=== PATIENT | female | born 1990 | race Caucasian/White ===

== ENCOUNTER 2016-09-30 00:11 | Emergency (ER) | payer OTHER, MEDICAID ==
[~2016-09-30] VITALS: Ht 157.5 cm; Wt 65.8 kg
[~2016-09-30 00:11] MED LIST: ABILIFY5 MG; BIRTH CONTROL; CORTISPORIN EAR10 M1 AS; CORTISPORIN EAR10 ML AU; NORCO 5-325 TA1 EACH PO; PRENATAL COMPL1 EACH PO; PRENATAL VITAM1 EAC2 PO; PROCARDIA XL30 MG PO; PROCARDIA XL60 MG PO; PROGESTERONE100 MG PO; PROMETRIUM200 MG PV; SEPTRA DS TABL1 EACH PO; SUBOXONE 8 MG-1 EAC1 SL; TYLENOL EXTRA500 MG PO
[2016-09-30] MEDS ORDERED: BENADRYL ALLERG25 MG PO (00:28)
[2016-09-30] MEDS ORDERED: ZOFRAN ODT4 MG PO (02:12)
== END 2016-09-30 02:35 | disposition home or self-care (01) ==
LOC: ED 00:11
DX: R11.2 Nausea with vomiting, unspecified (principal); J45.909 Unspecified asthma, uncomplicated; F17.200 Nicotine dependence, unspecified, uncomplicated; Z88.0 Allergy status to penicillin; Z88.1 Allergy status to other antibiotic agents; Z91.010 Allergy to peanuts; Z88.8 Allergy status to other drugs, medicaments and biological substances; Z91.011 Allergy to milk products; Z79.899 Other long term (current) drug therapy
CPT/HCPCS: 80053; 81001; 84703; 85025; 96361; 96374; 99283; J2405; J7030

== ENCOUNTER 2016-10-08 23:21 | Emergency (ER) | payer OTHER, MEDICAID ==
[~2016-10-08] VITALS: Ht 157.5 cm; Wt 65.8 kg
[~2016-10-08 23:21] MED LIST changes: +BENADRYL ALLERG25 MG PO; +ZOFRAN ODT4 MG PO
[2016-10-09] MEDS ORDERED: PHENAZOPYRIDIN200 MG PO (01:29)
[2016-10-09] MEDS ORDERED: CIPRO500 MG PO (01:29)
== END 2016-10-09 01:55 | disposition home or self-care (01) ==
LOC: ED 23:21
PROC: 0T9B70Z Drainage of Bladder with Drainage Device, Via Natural or Artificial Opening (ICD-10-PCS; principal; 2016-10-08)
DX: N30.00 Acute cystitis without hematuria (principal); J45.909 Unspecified asthma, uncomplicated; F17.200 Nicotine dependence, unspecified, uncomplicated; Z88.0 Allergy status to penicillin; Z88.1 Allergy status to other antibiotic agents; Z88.8 Allergy status to other drugs, medicaments and biological substances; Z91.040 Latex allergy status; Z91.018 Allergy to other foods; Z91.011 Allergy to milk products; Z79.899 Other long term (current) drug therapy
CPT/HCPCS: 51701; 81001; 84703; 87088; 96372; 99283; J1885

== ENCOUNTER 2017-01-30 12:30 | Emergency (ER) | payer OTHER, MEDICAID ==
[~2017-01-30] VITALS: Ht 157.5 cm; Wt 72.6 kg
[~2017-01-30 12:30] MED LIST changes: +CIPRO500 MG PO; +PHENAZOPYRIDIN200 MG PO
[2017-01-30] MEDS ORDERED: VITAMIN D35000 UNIT PO (12:54)
== END 2017-01-30 15:25 | disposition home or self-care (01) ==
LOC: ED 12:30
DX: N92.0 Excessive and frequent menstruation with regular cycle (principal); J45.909 Unspecified asthma, uncomplicated; G43.909 Migraine, unspecified, not intractable, without status migrainosus; F17.200 Nicotine dependence, unspecified, uncomplicated; Z88.0 Allergy status to penicillin; Z88.1 Allergy status to other antibiotic agents; Z91.010 Allergy to peanuts; Z91.011 Allergy to milk products; Z91.018 Allergy to other foods; Z79.899 Other long term (current) drug therapy
CPT/HCPCS: 76801; 76817; 76830; 76856; 81001; 84702; 85025; 96361; 96372; 96374; 99284; J1885; J2210; J7030

== ENCOUNTER 2017-03-08 20:06 | Emergency (ER) | payer OTHER ==
[~2017-03-08] VITALS: Ht 157.5 cm; Wt 72.6 kg
[~2017-03-08 20:06] MED LIST changes: +VITAMIN D35000 UNIT PO
[2017-03-08] MEDS ORDERED: PYRIDIUM100 MG PO (20:32)
[2017-03-08] MEDS ORDERED: ZOFRAN ODT4 MG PO (23:38)
[2017-03-08] MEDS ORDERED: PYRIDIUM200 MG PO (23:38)
[2017-03-08] MEDS ORDERED: KEFLEX500 MG PO (23:38)
== END 2017-03-08 23:56 | disposition home or self-care (01) ==
LOC: ED 20:06
DX: K29.70 Gastritis, unspecified, without bleeding (principal); N39.0 Urinary tract infection, site not specified; J45.909 Unspecified asthma, uncomplicated; F17.200 Nicotine dependence, unspecified, uncomplicated; Z90.89 Acquired absence of other organs; Z88.0 Allergy status to penicillin; Z91.010 Allergy to peanuts; Z88.8 Allergy status to other drugs, medicaments and biological substances; Z91.040 Latex allergy status; Z91.048 Other nonmedicinal substance allergy status; Z91.018 Allergy to other foods; Z91.011 Allergy to milk products; Z79.899 Other long term (current) drug therapy
CPT/HCPCS: 80053; 81001; 84703; 85025; 87502; 96361; 96374; 99283; J2405; J7030

== ENCOUNTER 2017-04-17 17:06 | Emergency (ER) | payer OTHER ==
[~2017-04-17] VITALS: Ht 157.5 cm; Wt 72.6 kg
[~2017-04-17 17:06] MED LIST changes: +KEFLEX500 MG PO; +PYRIDIUM100 MG PO; +PYRIDIUM200 MG PO
== END 2017-04-17 17:27 | disposition home or self-care (01) ==
LOC: ED 17:06
DX: R20.0 Anesthesia of skin (principal); R51 Headache; R22.0 Localized swelling, mass and lump, head; R11.2 Nausea with vomiting, unspecified

== ENCOUNTER 2017-10-22 21:28 | Emergency (ER) | payer OTHER ==
[~2017-10-22] VITALS: Ht 157.5 cm; Wt 65.8 kg
[2017-10-22] MEDS ORDERED: FLUOXETINE HCL60 MG PO (23:06)
[2017-10-22] MEDS ORDERED: BENADRYL25 MG PO (23:14)
[2017-10-22] MEDS ORDERED: ACETAMINOPHEN500 MG PO (23:15)
[2017-10-22] MEDS ORDERED: IBUPROFEN200 M1 PO (23:15)
== END 2017-10-23 00:30 | disposition home or self-care (01) ==
LOC: ED 21:28
DX: L50.0 Allergic urticaria (principal); F17.200 Nicotine dependence, unspecified, uncomplicated; Z88.0 Allergy status to penicillin; Z91.010 Allergy to peanuts; Z91.040 Latex allergy status; Z88.8 Allergy status to other drugs, medicaments and biological substances; Z91.018 Allergy to other foods; Z91.011 Allergy to milk products
CPT/HCPCS: 99282